=== PATIENT | female | born 1950 | race Caucasian/White ===

== ENCOUNTER 2018-04-27 19:21 | Inpatient (IN) | payer MEDICARE, MEDICAID ==
[2018-04-27 20:10] VITALS: BMI 49.9
[2018-04-27] MEDS ORDERED: Dextrose 50% Abboject 50 ML SYRINGE IVP PRN (20:12)
[2018-04-27] MEDS ORDERED: Dextrose 5% in Water 1,000 ML IV PRN ×2 (20:12→21:17)
[2018-04-27] MEDS ORDERED: Dextrose 50% Abboject 50 ML SYRINGE SLOW IVP PRN (21:17)
[2018-04-27] MEDS ORDERED: Acetaminophen 325 MG TAB PO PRN (22:02)
[2018-04-28] MEDS ORDERED: ACETAMINOPHEN 1300 MG PO SCH (01:00)
[2018-04-28 05:22] LABS: #Basophils 0.1 thou/uL (0.0-0.2); #Eosinphils 0.1 thou/uL (0.0-0.7); #Lymphocytes 2.1 thou/uL (1.20-3.40); #Monocytes 0.9 thou/uL (0.11-0.59); #Neutrophils 5.3 thou/uL (1.40-6.50); %Basophils 0.7 % (0.0-1.0); %Eosinophils 1.3 % (0.0-10.0); %Lymphocytes 25.2 % (21.0-51.0); %Monocytes 10.5 % (0.0-10.0); %Neutrophils 62.3 % (42.0-75.0); Hemoglobin 9.3 g/dL (12.0-16.0); Mean Corpuscular HGB CONC 31.8 g/dL (32.0-36.0); Mean Corpuscular Hemoglobin 28.2 pg (27.0-31.0); Mean Corpuscular Volume 88.6 fL (78.0-98.0); Mean Platelet Volume 6.2 fL (7.4-10.4); Platelet Count 271 thou/uL (130-400); RBC Distribution Width 13.8 % (11.5-14.5); Red Blood Cell (RBC) Count 3.28 mill/uL (4.20-5.40); White Blood Cell (WBC) Count 8.5 thou/uL (4.8-10.8)
[2018-04-28 05:33] LABS: ALT (SGPT) 31 U/L (8-55); AST (SGOT) 27 U/L (5-34); Alkaline Phosphatase 96 U/L (40-150); Anion Gap 10 mmol/L (10-20); BUN (Urea Nitrogen) 12 mg/dL (9.8-20.1); Calc. Creatinine Clearance 132 mL/min (70-130); Calcium 9.2 mg/dL (7.8-10.44); Carbon Dioxide 31 mmol/L (23-31); Chloride 100 mmol/L (98-107); Estimated GFR-MDRD 71; Globulin 2.8 g/dL (2.4-3.5); Glucose 158 mg/dL (80-115); Potassium 4.4 mmol/L (3.5-5.1); Protein, Total 5.8 g/dL (6.0-8.3); Sodium 137 mmol/L (136-145)
[2018-04-28] MEDS: DULoxetine 30 MG CAP PO SCH ×2 (08:34→20:29)
[2018-04-28] MEDS: Nebivolol HCl 10 MG TAB PO SCH (08:36)
[2018-04-28] MEDS: Polyethylene Glycol 3350 17 GM Packet PO SCH (08:37)
[2018-04-28] MEDS: Pregabalin 75 MG CAP PO SCH ×2 (08:37→20:28)
[2018-04-28] MEDS: Triamterene/Hydrochlorothiazide TAB PO SCH (08:39)
[2018-04-28] MEDS ORDERED: Lantus 1000 UNITS/10 ML VIAL SC SCH ×2 (09:00)
[2018-04-28] MEDS: Insulin Regular 300 UNITS/3 ML VIAL SC PRN ×2 (11:35→17:07)
[2018-04-28] MEDS: HYDROcodone/Acetaminophen 10/325 mg Tablet PO PRN (15:58)
[2018-04-28] MEDS: Montelukast Sodium 10 mg Tablet PO SCH (20:29)
[2018-04-28] MEDS: Oxybutynin 5 MG TAB PO SCH (20:29)
[2018-04-28] MEDS: Lantus 1000 UNITS/10 ML VIAL SC SCH (20:30)
[2018-04-28] MEDS: Famotidine 20 MG TAB PO SCH (20:30)
[2018-04-28] MEDS ORDERED: Insulin Glargine 16 UNITS in Pre-Filled Syringe 1 EACH SC SCH (21:00)
[2018-04-28] MEDS ORDERED: Non-Formulary Item 1 EACH (Ranitidine Hcl [Ranitidine Hcl] 150 MG) PO SCH (21:00)
--- NOTE | 2018-04-29 01:38 | HP ---
HISTORY OF PRESENT ILLNESS: Patient is a very pleasant 68-year-old white female with a history of poorly-controlled insulin-dependant diabetes mellitus, morbid obesity, recurrent osteoarthritis of the right knee, hypertension, and asthma, who has undergone multiple arthroscopy of the right knee and finally she has undergone a total knee replacement on April [address] Gopal Whyte. She initially was on high doses of insulin long and short-acting at home with a hemoglobin A1c of 7.1. She admitted to being noncompliant to her diet at home, but in the hospital did not eat well and became hypoglycemic and therefore was taken off all of her routine insulin and started on a sliding scale. However, she now is eating better, has been started back on her routine medicines increasing doses, although she states that she was on 66 units of Lantus in the morning as well as NovoLog 30 units and then 30 units with every meal. At present, she is on 33 units of Lantus in the morning and 16 units at night. She is eating well. No nausea or vomiting. PAST MEDICAL HISTORY: Remarkable as mentioned above for: 1. Asthma with occasional use of Pulmicort. No recent flare, being treated with DuoNeb while in the hospital postop. 2. History of a distant GI bleed, controlled with Pepcid. 3. History of hyperkalemia in the past and acute kidney injury, resolved and off antiinflammatories and diuretics. ALLERGIES: SHE HAS HISTORY OF ALLERGIES TO SULFA, IVP DYE, AND BETA BLOCKERS. SOCIAL HISTORY: She is a nonsmoker, nondrinker. FAMILY MEDICAL HISTORY: Noncontributory. REVIEW OF SYSTEMS: HEENT: She denies any headaches, dizziness, change in vision or hearing, hoarseness, or dysphagia. PULMONARY: She denies cough, sputum production, pneumonia, asthma, or tuberculosis. CARDIOVASCULAR: Denies chest pain, orthopnea, paroxysmal nocturnal dyspnea, or edema. GASTROINTESTINAL: Denies nausea, vomiting, diarrhea, constipation, or abdominal pain. GENITOURINARY: Denies dysuria, hematuria, or nocturia. MUSCULOSKELETAL: Has pain in the right knee, otherwise normal. NEUROLOGIC: Denies localized numbness or weakness in arms or extremities. PHYSICAL EXAMINATION: GENERAL: The patient is a morbidly obese, middle-aged white female, in no acute distress. Oriented x3 and cooperative. VITAL SIGNS: Showed her to have blood pressure 114/56, temperature is 98, pulse 65, respirations 18, and O2 sats 96% on room air. HEENT: Pupils are equal, round, and reactive to light and accommodation. Sclerae anicteric. Conjunctivae pale. Oral mucous membranes well hydrated. NECK: Supple. There are no nodes or masses. JVP is not elevated. LUNGS: Clear. CARDIAC EXAMINATION: Regular rhythm. No gallops or murmurs. ABDOMEN: Soft and nontender with no masses or organomegaly. SKIN/EXTREMITIES: Show healing anterior right knee incision with diffuse ecchymoses around the knee, but no significant erythema. There is 1+ edema. Minimal tenderness on the lower leg. NEUROLOGIC: Cranial nerves 2 through 12 intact. Deep tendon reflex 2+ and equal. Absent Babinski. LABORATORY: Laboratories previous hospital showed her to have hemoglobin A1c of 7.5. Hemoglobin 9.9. Creatinine of 1.0. ASSESSMENT: 1. Resolving right total knee. No evidence of infection. 2. Poorly-controlled diabetes secondary to noncompliance, being titrated slowly with sliding scale and reinstitution of her home medications. 3. Acute kidney injury, resolved. 4. , appeared to be stabilized. 5. History of asthma with no evidence of bronchospasm. 6. History of upper gastrointestinal bleed many years ago with no recurrence. PLAN: 1. Continue PT/OT. 2. Review labs therapy notes. 3. Continue sliding scale and restart Lantus at 30 units in the morning and 60 units at night. 4. Continue pain relief. 5. Continue stress ulcer and DVT prophylaxis. Job ID: [id number]
[2018-04-29] MEDS: HYDROcodone/Acetaminophen 10/325 mg Tablet PO PRN ×3 (05:28→19:40)
[2018-04-29] MEDS: Insulin Regular 300 UNITS/3 ML VIAL SC PRN ×4 (05:29→21:34)
[2018-04-29] MEDS: Lantus 1000 UNITS/10 ML VIAL SC SCH ×2 (08:50→21:31)
[2018-04-29] MEDS: DULoxetine 30 MG CAP PO SCH ×2 (08:51→21:31)
[2018-04-29] MEDS: Polyethylene Glycol 3350 17 GM Packet PO SCH (08:51)
[2018-04-29] MEDS: Pregabalin 75 MG CAP PO SCH ×2 (08:52→21:33)
[2018-04-29] MEDS: Nebivolol HCl 10 MG TAB PO SCH (08:52)
[2018-04-29] MEDS: Triamterene/Hydrochlorothiazide TAB PO SCH (08:54)
[2018-04-29] MEDS: Famotidine 20 MG TAB PO SCH (21:31)
[2018-04-29] MEDS: Montelukast Sodium 10 mg Tablet PO SCH (21:32)
[2018-04-29] MEDS: Oxybutynin 5 MG TAB PO SCH (21:32)
[2018-04-30] MEDS: Insulin Regular 300 UNITS/3 ML VIAL SC PRN ×4 (05:31→20:27)
[2018-04-30] MEDS: HYDROcodone/Acetaminophen 10/325 mg Tablet PO PRN ×2 (09:27→20:26)
[2018-04-30] MEDS: DULoxetine 30 MG CAP PO SCH ×2 (09:30→20:24)
[2018-04-30] MEDS: Nebivolol HCl 10 MG TAB PO SCH (09:31)
[2018-04-30] MEDS: Lantus 1000 UNITS/10 ML VIAL SC SCH ×2 (09:32→20:24)
[2018-04-30] MEDS: Polyethylene Glycol 3350 17 GM Packet PO SCH (09:33)
[2018-04-30] MEDS: Pregabalin 75 MG CAP PO SCH ×2 (09:33→20:25)
[2018-04-30] MEDS: Triamterene/Hydrochlorothiazide TAB PO SCH (09:35)
[2018-04-30] MEDS ORDERED: Polyethylene Glycol 3350 17 GM Packet PO SCH (17:30)
--- NOTE | 2018-04-30 17:30 | PRG ---
DATE OF SERVICE: 04/28/2018 SUBJECTIVE: The patient feels well, cooperating with therapy. No complaints. Tolerating gradual increase in her insulin. Having tolerable pain in her right knee status post right total knee replacement. OBJECTIVE: Shows, VITAL SIGNS: Temperature 97.1, pulse 75, respirations 18, O2 saturation is 94% on room air, blood pressure 137/62. EXTREMITIES: Right knee incision shows diffuse ecchymoses, but no erythema. Trace edema. Minimal tenderness. NEUROLOGIC: Intact. LUNGS: Clear. CARDIAC: Regular rhythm. LABORATORY DATA: Accu-Cheks ranged . Sodium is 137, potassium 4.4, chloride 100, bicarb 31, BUN 12, creatinine 0.8, glucose 158, calcium 9.2, protein 5.0, albumin 3.0. White count 8500, hematocrit 29, hemoglobin 9. ASSESSMENT: 1. Resolving right total knee. No evidence of infection. 2. Poorly-controlled diabetes, slowly improving. 3. Acute kidney injury, resolved. 4. History of asthma. No recurrence. PLAN: 1. Continue Lantus doses of 32 units 16 units at night. 2. Monitor Accu-Cheks, slowly titrate. 3. Continue pain relief. 4. Continue PT/OT. 5. Continue to monitor vital signs and control if needed. 6. Continue stress ulcer and DVT prophylaxis. Job ID: [id number]
--- NOTE | 2018-04-30 17:34 | PRG ---
DATE OF SERVICE: 04/29/2018 SUBJECTIVE: The patient feels well, cooperating with therapy with no complaints, decreasing pain, increasing strength. OBJECTIVE: VITAL SIGNS: Show temperature 98, pulse 79, respirations 20, O2 sats 94% on room air, and blood pressure 130/60. LUNGS: Clear. CARDIAC: Showed regular rhythm. ABDOMEN: Soft and nontender. EXTREMITIES: Right knee shows minimal erythema and swelling and tenderness. LABORATORY DATA: Accu-Cheks still ranging above 200. We will consider changing insulin tomorrow. Stressed compliance diet with the patient. ASSESSMENT: 1. Uncontrolled diabetes. We will continue to titrate insulin. 2. Stable right total knee, improving daily and cooperating with therapy. 3. Asthma, well controlled with no evidence for recurrence. 4. History of distant gastrointestinal bleed. PLAN: 1. Continue PT and OT. 2. Continue stress ulcer and DVT prophylaxis. 3. Continue to titrate insulin. Job ID: [id number]
--- NOTE | 2018-04-30 17:57 | PRG ---
DATE OF SERVICE: 04/30/2018 SUBJECTIVE: The patient feels well. Only complains of constipation with no bowel movement in 10 days. She is refusing magnesium citrate and is requesting MiraLAX and Gatorade. She is eating well, however, and is having increasing Accu-Cheks. OBJECTIVE: VITAL SIGNS: Blood pressure is 168/68, temperature is 96, pulse 71, respirations are 18, O2 saturations 96% on room air. Accu-Cheks ranged from 174 to 334. LUNGS: Clear. CARDIAC: Examination showed regular rhythm. ABDOMEN: Soft and nontender. EXTREMITIES: Right knee appears to be healing well with diffuse ecchymoses, but no erythema. ASSESSMENT: 1. Healing right total knee. 2. Poorly-controlled diabetes. 3. New onset of constipation. 4. Morbid obesity. 5. Asthma. PLAN: 1. MiraLAX ounces of Gatorade, patient requests. 2. Increase Lantus to 40 units in the morning, continue night and continue Accu-Cheks to monitor and titrate and control. 3. Continue PT/OT. 4. Continue pain relief. 5. Continue stress ulcer and DVT prophylaxis. Job ID: [id number]
[2018-04-30] MEDS: Famotidine 20 MG TAB PO SCH (20:24)
[2018-04-30] MEDS: Oxybutynin 5 MG TAB PO SCH (20:25)
[2018-04-30] MEDS: Montelukast Sodium 10 mg Tablet PO SCH (20:25)
[2018-05-01] MEDS: HYDROcodone/Acetaminophen 10/325 mg Tablet PO PRN ×2 (04:31→11:03)
[2018-05-01] MEDS: Insulin Regular 300 UNITS/3 ML VIAL SC PRN ×4 (05:37→21:06)
[2018-05-01] MEDS: Pregabalin 75 MG CAP PO SCH ×2 (09:45→21:10)
[2018-05-01] MEDS: Nebivolol HCl 10 MG TAB PO SCH (09:47)
[2018-05-01] MEDS: DULoxetine 30 MG CAP PO SCH ×2 (09:49→21:11)
[2018-05-01] MEDS: Lantus 1000 UNITS/10 ML VIAL SC SCH ×2 (09:50→21:07)
[2018-05-01] MEDS: Triamterene/Hydrochlorothiazide TAB PO SCH (09:51)
[2018-05-01] MEDS: HYDROcodone/Acetaminophen 5/325 mg Tablet PO PRN (18:12)
[2018-05-01] MEDS: Famotidine 20 MG TAB PO SCH (21:11)
[2018-05-01] MEDS: Oxybutynin 5 MG TAB PO SCH (21:11)
[2018-05-01] MEDS: Montelukast Sodium 10 mg Tablet PO SCH (21:12)
[2018-05-02] MEDS: HYDROcodone/Acetaminophen 5/325 mg Tablet PO PRN ×2 (02:08→09:03)
[2018-05-02] MEDS: Insulin Regular 300 UNITS/3 ML VIAL SC PRN ×2 (05:25→11:50)
[2018-05-02] MEDS: DULoxetine 30 MG CAP PO SCH ×2 (08:58→20:53)
[2018-05-02] MEDS: Lantus 1000 UNITS/10 ML VIAL SC SCH ×2 (08:59→21:02)
[2018-05-02] MEDS: Nebivolol HCl 10 MG TAB PO SCH (09:00)
[2018-05-02] MEDS: Pregabalin 75 MG CAP PO SCH ×2 (09:00→20:55)
[2018-05-02] MEDS: Triamterene/Hydrochlorothiazide TAB PO SCH (09:02)
[2018-05-02] MEDS ORDERED: TRULICITY PATIENT'S HOME MEDICATION SC SCH (16:00)
[2018-05-02] MEDS: Famotidine 20 MG TAB PO SCH (20:54)
[2018-05-02] MEDS: Oxybutynin 5 MG TAB PO SCH (20:54)
[2018-05-02] MEDS: Montelukast Sodium 10 mg Tablet PO SCH (20:54)
[2018-05-02] MEDS: Nystatin 500,000 UNITS/5 ML UDCUP SSW SCH (21:39)
[2018-05-03] MEDS: HYDROcodone/Acetaminophen 5/325 mg Tablet PO PRN ×3 (05:27→20:23)
[2018-05-03 05:29] LABS: #Basophils 0.1 thou/uL (0.0-0.2); #Eosinphils 0.1 thou/uL (0.0-0.7); #Lymphocytes 4.9 thou/uL (1.20-3.40); #Monocytes 1.5 thou/uL (0.11-0.59); #Neutrophils 11.2 thou/uL (1.40-6.50); %Basophils 0.6 % (0.0-1.0); %Eosinophils 0.7 % (0.0-10.0); %Lymphocytes 27.4 % (21.0-51.0); %Monocytes 8.1 % (0.0-10.0); %Neutrophils 63.2 % (42.0-75.0); Hemoglobin 11.6 g/dL (12.0-16.0); Mean Corpuscular HGB CONC 32.1 g/dL (32.0-36.0); Mean Corpuscular Hemoglobin 28.7 pg (27.0-31.0); Mean Corpuscular Volume 89.4 fL (78.0-98.0); Mean Platelet Volume 6.5 fL (7.4-10.4); Platelet Count 591 thou/uL (130-400); RBC Distribution Width 14.1 % (11.5-14.5); Red Blood Cell (RBC) Count 4.03 mill/uL (4.20-5.40); White Blood Cell (WBC) Count 17.8 thou/uL (4.8-10.8)
[2018-05-03 05:46] LABS: Anion Gap 17 mmol/L (10-20); BUN (Urea Nitrogen) 15 mg/dL (9.8-20.1); Calc. Creatinine Clearance 97 mL/min (70-130); Calcium 10.7 mg/dL (7.8-10.44); Carbon Dioxide 28 mmol/L (23-31); Chloride 94 mmol/L (98-107); Estimated GFR-MDRD 50; Glucose 188 mg/dL (80-115); Potassium 4.6 mmol/L (3.5-5.1); Sodium 134 mmol/L (136-145)
[2018-05-03] MEDS ORDERED: Nystatin 500,000 UNITS/5 ML UDCUP ONE ×2 (09:47→14:23)
[2018-05-03] MEDS: DULoxetine 30 MG CAP PO SCH ×2 (09:50→20:22)
[2018-05-03] MEDS: Nebivolol HCl 10 MG TAB PO SCH (09:52)
[2018-05-03] MEDS: Pregabalin 75 MG CAP PO SCH ×2 (09:52→20:20)
[2018-05-03] MEDS: Nystatin 500,000 UNITS/5 ML UDCUP SSW SCH ×2 (09:52→14:33)
[2018-05-03] MEDS: Triamterene/Hydrochlorothiazide TAB PO SCH (09:54)
[2018-05-03] MEDS: Lantus 1000 UNITS/10 ML VIAL SC SCH ×2 (09:55→20:19)
--- NOTE | 2018-05-03 10:11 | RAD ---
PORTABLE CHEST: Date: 05/03/18 PROVIDED CLINICAL HISTORY: Leukocytosis. FINDINGS: Evaluation is limited by patient body habitus. Cardiac silhouette appears enlarged, which may be at least partially on the basis of portable techniq ue. There is no focal consolidation, pleural fluid, or pneumothorax apparent. IMPRESSION: No evidence for an acute cardiopulmonary process. POS: H
[2018-05-03] MEDS: Insulin Regular 300 UNITS/3 ML VIAL SC PRN ×2 (12:20→17:18)
--- NOTE | 2018-05-03 12:56 | PRG ---
DATE OF SERVICE: 05/01/2018 SUBJECTIVE: The patient feels bloated, still has not had a good bowel movement, but will finish through rest of her MiraLAX tonight and having persistent pain in her knee and is concerned about this and possible infection. OBJECTIVE: EXTREMITIES: Right knee shows ecchymoses, but no erythema or warmth. VITAL SIGNS: Show temperature 98.6, blood pressure 152/70, pulse 70, respirations 16, O2 saturations 93% on room air. ASSESSMENT: 1. Severe pain, right knee. No evidence of infection. 2. Constipation, in the process of taking MiraLAX prep. 3. Type 2 diabetes with inadequate control. Accu-Chek running above 300. PLAN: 1. Continue MiraLAX and Gatorade. 2. Continue hydrocodone for pain. 3. Titrate Lantus even more. 4. Repeat labs in several days. Job ID: [id number]
[2018-05-03] MEDS: Fluconazole 100 MG TAB PO SCH (17:15)
[2018-05-03 20:20] LABS: Bilirubin Negative (Negative); Blood, Urine Trace (Negative); Glucose, Urine (Dipstick) Negative (Negative); Leukocyte Large (Negative); Nitrite Positive (Negative); Protein, Urine (Dipstick) Negative (Neg-Trace); Specific Gravity, Urine 1.015 (1.005-1.030)
[2018-05-03] MEDS: Montelukast Sodium 10 mg Tablet PO SCH (20:22)
[2018-05-03] MEDS: Famotidine 20 MG TAB PO SCH (20:22)
[2018-05-03] MEDS: Oxybutynin 5 MG TAB PO SCH (20:22)
[2018-05-03 20:26] LABS: Clarity Hazy (Clear)
[2018-05-03 20:28] LABS: RBC/HPF 0-3 HPF (0-3); Squamous Epithelial 0-3 HPF (0-3)
[2018-05-03 20:29] LABS: Bacteria/HPF 4+ HPF (None Seen)
[2018-05-04] MEDS: Insulin Regular 300 UNITS/3 ML VIAL SC PRN ×4 (05:47→20:43)
[2018-05-04] MEDS ORDERED: cefTRIAXone Sodium 2 MG in Syringe 0 ML IVPB SCH (06:00)
--- NOTE | 2018-05-04 06:56 | PRG ---
DATE OF SERVICE: 05/02/2018 SUBJECTIVE: The patient feels well except for sores in her mouth, has had a large bowel movement, and is having mainly complained of sore tongue and also persistent pain in her right knee. OBJECTIVE: HEENT: Tongue shows beefy-red tongue with some mild exudate on tongue. EXTREMITIES: Right knee shows ecchymoses, but with no erythema or warmth. LUNGS: Clear. CARDIAC: Regular rhythm. ABDOMEN: Soft and nontender. VITAL SIGNS: Temperature is 96.5, pulse 64, respirations 20, O2 sats 97% on room air, and blood pressure is 149/56. ASSESSMENT: 1. Persistent pain in the right knee, ecchymoses, no evidence of erythema. We will obtain labs, CBC, basic metabolic profile in the a.m. 2. New onset of red-beefy tongue, most likely due to nystatin oral swish and swallow unavailable, so we will start on Diflucan. 3. Constipation, resolved. PLAN: 1. Diflucan 150 mg daily for 3 days. 2. CBC, basic metabolic profile in the a.m. 3. Continue pain medications as ordered. 4. Continue PT/OT. Job ID: [id number]
[2018-05-04] MEDS ORDERED: cefTRIAXone\\ROCEPHIN 2 GM in Sodium Chloride 0.9% 100 ML IVPB SCH (07:00)
--- NOTE | 2018-05-04 07:03 | PRG ---
DATE OF SERVICE: 05/03/2018 SUBJECTIVE: The patient is a 68-year-old white female, status post right total knee, who is having persistent pain in her knee, having some sore lesions in her mouth. Her mouth appears to be somewhat less tender. She is denying any cough, shortness of breath, dysuria, or abdominal pain. OBJECTIVE: VITAL SIGNS: Temperature 96.8, pulse 70, respirations 18, O2 sats 97% on room air, and blood pressure 148/65. ABDOMEN: Soft and nontender. EXTREMITIES: Right knee still shows no erythema or warmth, but is tender with ecchymoses. LABORATORY DATA: Laboratory, however, shows her to have a white count of 17,800, hematocrit 36, and hemoglobin 11.6. Accu-Cheks are from 168 to 247. Sodium is 134, potassium 4.6, chloride 94, bicarb 28, BUN 15, and creatinine 1.08. Urinalysis did show greater than 50 white cells, large leukocytes. Chest x-ray showed no infiltrates. ASSESSMENT: 1. Leukocytosis, new onset of urinary tract infection. We will do urine culture, start on treatment with Rocephin, but we will also treat for possible right leg infection with vancomycin until blood and urine cultures return. The patient is to follow up with orthopedic surgeon soon, and we will continue on antibiotics until seen by him. 2. Oral monilial stomatitis, appears to be improving with Diflucan, we will continue. Job ID: [id number]
--- NOTE | 2018-05-04 07:46 | PRG ---
DATE OF SERVICE: 05/04/2018 SUBJECTIVE: The patient feels well, lying in bed, still complaining of sore mouth, however, and pain in the right knee. She has taken Diflucan for her mouth. OBJECTIVE: EXTREMITIES: Show right knee has some warmth and diffuse ecchymoses, but no real drainage or erythema. Culture of the knee incision is showing no white cells, no organisms, and no growth. ABDOMEN: Soft and nontender. LUNGS: Clear. VITAL SIGNS: Show blood pressure 151/73, temperature 97.8, pulse 73, respirations 19, O2 sats 96% on room air. ASSESSMENT: 1. Status post right total knee with persistent severe pain and now some mild warmth and new finding of leukocytosis, but with negative skin culture and new finding of pyuria or bacteriuria, but with no symptoms of dysuria, hematuria. 2. Monilial stomatitis, minimal improvement with one dose of Diflucan. PLAN: Blood and urine culture today, and start on vancomycin, Rocephin. Follow with Dr. Whyte for a repeat examination. Continue PT, OT. Job ID: [id number]
[2018-05-04 08:34] LABS: #Basophils 0.1 thou/uL (0.0-0.2); #Eosinphils 0.1 thou/uL (0.0-0.7); #Lymphocytes 2.1 thou/uL (1.20-3.40); #Monocytes 0.8 thou/uL (0.11-0.59); #Neutrophils 8.3 thou/uL (1.40-6.50); %Basophils 0.7 % (0.0-1.0); %Eosinophils 0.7 % (0.0-10.0); %Lymphocytes 18.8 % (21.0-51.0); %Monocytes 6.7 % (0.0-10.0); %Neutrophils 73.1 % (42.0-75.0); Hemoglobin 11.5 g/dL (12.0-16.0); Mean Corpuscular HGB CONC 30.7 g/dL (32.0-36.0); Mean Corpuscular Hemoglobin 27.6 pg (27.0-31.0); Mean Corpuscular Volume 89.9 fL (78.0-98.0); Mean Platelet Volume 6.4 fL (7.4-10.4); Platelet Count 448 thou/uL (130-400); RBC Distribution Width 14.4 % (11.5-14.5); Red Blood Cell (RBC) Count 4.18 mill/uL (4.20-5.40); White Blood Cell (WBC) Count 11.3 thou/uL (4.8-10.8)
[2018-05-04] MEDS: Lantus 1000 UNITS/10 ML VIAL SC SCH ×2 (08:37→20:39)
[2018-05-04] MEDS: DULoxetine 30 MG CAP PO SCH ×2 (08:38→20:38)
[2018-05-04] MEDS: Nebivolol HCl 10 MG TAB PO SCH (08:38)
[2018-05-04] MEDS: Pregabalin 75 MG CAP PO SCH ×2 (08:40→20:36)
[2018-05-04] MEDS: Vancomycin HCl 1 GM in Sodium Chloride 0.9% 250 ML 250 ML IVPB SCH ×2 (08:43→20:28)
[2018-05-04] MEDS: Triamterene/Hydrochlorothiazide TAB PO SCH (08:43)
[2018-05-04] MEDS: HYDROcodone/Acetaminophen 5/325 mg Tablet PO PRN ×2 (08:46→12:29)
[2018-05-04 08:51] LABS: Anion Gap 16 mmol/L (10-20); BUN (Urea Nitrogen) 16 mg/dL (9.8-20.1); Calc. Creatinine Clearance 110 mL/min (70-130); Calcium 10.3 mg/dL (7.8-10.44); Carbon Dioxide 25 mmol/L (23-31); Chloride 96 mmol/L (98-107); Estimated GFR-MDRD 58; Glucose 183 mg/dL (80-115); Potassium 4.2 mmol/L (3.5-5.1); Sodium 133 mmol/L (136-145)
[2018-05-04] MEDS: cefTRIAXone\\ROCEPHIN 2 GM in Sodium Chloride 0.9% 100 ML IVPB SCH (12:30)
[2018-05-04] MEDS ORDERED: Sodium Chloride 0.9% 10 ML ONE (13:32)
[2018-05-04] MEDS: Fluconazole 100 MG TAB PO SCH (16:20)
[2018-05-04] MEDS: Famotidine 20 MG TAB PO SCH (20:38)
[2018-05-04] MEDS: Oxybutynin 5 MG TAB PO SCH (20:38)
[2018-05-04] MEDS: Montelukast Sodium 10 mg Tablet PO SCH (20:38)
[2018-05-05] MEDS: Insulin Regular 300 UNITS/3 ML VIAL SC PRN ×4 (06:09→21:17)
[2018-05-05] MEDS: HYDROcodone/Acetaminophen 5/325 mg Tablet PO PRN ×4 (08:24→21:00)
[2018-05-05] MEDS: Lantus 1000 UNITS/10 ML VIAL SC SCH ×2 (09:22→21:01)
[2018-05-05] MEDS: Nebivolol HCl 10 MG TAB PO SCH (09:23)
[2018-05-05] MEDS: DULoxetine 30 MG CAP PO SCH ×2 (09:28→21:13)
[2018-05-05] MEDS: Pregabalin 75 MG CAP PO SCH ×2 (09:29→21:14)
[2018-05-05] MEDS: Vancomycin HCl 1 GM in Sodium Chloride 0.9% 250 ML 250 ML IVPB SCH ×2 (09:30→20:59)
[2018-05-05] MEDS: Triamterene/Hydrochlorothiazide TAB PO SCH (09:30)
[2018-05-05] MEDS: cefTRIAXone\\ROCEPHIN 2 GM in Sodium Chloride 0.9% 100 ML IVPB SCH (09:31)
[2018-05-05] MEDS: Fluconazole 100 MG TAB PO SCH (16:28)
--- NOTE | 2018-05-05 18:51 | PRG ---
DATE OF SERVICE: 05/05/2018 SUBJECTIVE: The patient complaining of persistent right hip and thigh pain and knee pain and states that she needs a heating pad. It appears to be spasms. She has had no fever and chills. She has had her Trulicity given to her, but is still having uncontrolled sugar, diabetes. She also is complaining of persistent pain. OBJECTIVE: VITAL SIGNS: Have been fairly stable tonight, blood pressure 178/77, temperature 97, pulse 96, respirations 20, O2 sats 90% on room air. LUNGS: Clear. CARDIAC: Regular rhythm. No gallops or murmurs. ABDOMEN: Soft and nontender. EXTREMITIES: Right knee/leg shows diffuse ecchymoses, but with no erythema or warmth. LABORATORY DATA: White count improved to 11,300 yesterday. Accu-Chek still elevated today at 236, down to 183. Sodium is 133 yesterday, potassium 4.2, chloride 96, bicarb 25, BUN 16, creatinine 0.96, glucose 183. Microbiology shows urine culture positive for E coli. ASSESSMENT: 1. Probable Escherichia coli urinary tract infection causing leukocytosis and we will change to oral antibiotic tomorrow if orthopedic surgeon agrees and knee does not appear to be infected. 2. Persistent knee and hip pain, most likely due to subcutaneous hematoma and ecchymoses and spasms. We will start on heating pad per request. 3. Uncontrolled diabetes despite being started back on her Trulicity 0.75 this weekend and continued on moderate sliding scale and Lantus 44 units at night. The patient is also requesting Mobic (meloxicam) for her recurrent arthritic pain as her arthritis and diffuse fibromyalgia persisted. PLAN: 1. Mobic 15 mg daily. 2. Continue Trulicity and increase Lantus to 46 units daily. 3. Discussed with orthopedic surgeon about need for IV antibiotics for knee if necessary. 4. Change to oral antibiotics for E coli urinary tract infections tomorrow when sensitivities return. Job ID: [id number]
[2018-05-05] MEDS: Montelukast Sodium 10 mg Tablet PO SCH (21:12)
[2018-05-05] MEDS: Oxybutynin 5 MG TAB PO SCH (21:13)
[2018-05-05] MEDS: Famotidine 20 MG TAB PO SCH (21:13)
[2018-05-06] MEDS: Lantus 1000 UNITS/10 ML VIAL SC SCH ×2 (07:59→19:46)
[2018-05-06] MEDS: DULoxetine 30 MG CAP PO SCH ×2 (07:59→19:45)
[2018-05-06] MEDS: Meloxicam 7.5 MG TAB PO SCH (07:59)
[2018-05-06] MEDS: Nebivolol HCl 10 MG TAB PO SCH (08:00)
[2018-05-06] MEDS: Pregabalin 75 MG CAP PO SCH ×2 (08:00→19:46)
[2018-05-06] MEDS: Triamterene/Hydrochlorothiazide TAB PO SCH (08:01)
[2018-05-06] MEDS: Vancomycin HCl 1 GM in Sodium Chloride 0.9% 250 ML 250 ML IVPB SCH ×3 (08:02→19:48)
[2018-05-06] MEDS: HYDROcodone/Acetaminophen 5/325 mg Tablet PO PRN (08:02)
[2018-05-06] MEDS: cefTRIAXone\\ROCEPHIN 2 GM in Sodium Chloride 0.9% 100 ML IVPB SCH (11:11)
[2018-05-06] MEDS: Insulin Regular 300 UNITS/3 ML VIAL SC PRN (11:28)
--- NOTE | 2018-05-06 18:28 | PRG ---
DATE OF SERVICE: 05/06/2018 SUBJECTIVE: The patient feels well with decreasing, but persistent pain in the right knee. Has seen her surgeon today, who states that she needs to tolerate this as her leg is healing, but will need to continue on therapy and the above-mentioned pain medications as previously prescribed. Does not think she has any infection in her leg. OBJECTIVE: VITAL SIGNS: Show temperature 96, pulse 65, respirations 18, O2 saturation is 97% on room air, and blood pressure 129/62. LABORATORY DATA: Urine cultures growing Escherichia coli and Proteus mirabilis. Sensitivities pending. Right knee shows persistent ecchymoses with decreasing edema. ASSESSMENT: 1. Resolving right total knee with no evidence of infection. 2. Urinary tract infection, secondary to Escherichia coli and Proteus. Awaiting sensitivities. We will start on Keflex orally. Continue IV Rocephin until sensitivities returned. 3. Diabetes with adequate control, and we will increase medications to glargine Lantus 50 units in the morning and continue 23 units at night and monitor. Job ID: [id number]
[2018-05-06] MEDS: Famotidine 20 MG TAB PO SCH (19:45)
[2018-05-06] MEDS: Oxybutynin 5 MG TAB PO SCH (19:46)
[2018-05-06] MEDS: Montelukast Sodium 10 mg Tablet PO SCH (19:46)
[2018-05-07] MEDS: Insulin Regular 300 UNITS/3 ML VIAL SC PRN ×3 (06:19→21:16)
[2018-05-07] MEDS: Meloxicam 7.5 MG TAB PO SCH (08:40)
[2018-05-07] MEDS: DULoxetine 30 MG CAP PO SCH ×2 (08:40→21:07)
[2018-05-07] MEDS: Lantus 1000 UNITS/10 ML VIAL SC SCH ×2 (08:41→21:15)
[2018-05-07] MEDS: Nebivolol HCl 10 MG TAB PO SCH (08:43)
[2018-05-07] MEDS: Pregabalin 75 MG CAP PO SCH ×2 (08:43→21:07)
[2018-05-07] MEDS: Triamterene/Hydrochlorothiazide TAB PO SCH (08:44)
[2018-05-07] MEDS: Vancomycin HCl 1 GM in Sodium Chloride 0.9% 250 ML 250 ML IVPB SCH (08:44)
[2018-05-07] MEDS: HYDROcodone/Acetaminophen 5/325 mg Tablet PO PRN ×3 (08:45→21:09)
[2018-05-07] MEDS: cefTRIAXone\\ROCEPHIN 2 GM in Sodium Chloride 0.9% 100 ML IVPB SCH (10:28)
[2018-05-07] MEDS ORDERED: AMOXicillin 250 MG CAP ONE (20:59)
[2018-05-07] MEDS: Famotidine 20 MG TAB PO SCH (21:06)
[2018-05-07] MEDS: Montelukast Sodium 10 mg Tablet PO SCH (21:06)
[2018-05-07] MEDS: Oxybutynin 5 MG TAB PO SCH (21:07)
[2018-05-07] MEDS: Nitrofurantoin Macrocrystal 50 MG CAP PO SCH (21:08)
[2018-05-07] MEDS: AMOXicillin 250 MG CAP PO SCH (21:26)
[2018-05-08] MEDS: AMOXicillin 250 MG CAP PO SCH ×3 (05:28→21:07)
[2018-05-08] MEDS: HYDROcodone/Acetaminophen 5/325 mg Tablet PO PRN ×3 (05:29→21:08)
[2018-05-08] MEDS: Pregabalin 75 MG CAP PO SCH ×2 (08:40→21:07)
[2018-05-08] MEDS: DULoxetine 30 MG CAP PO SCH ×2 (08:42→21:07)
[2018-05-08] MEDS: Meloxicam 7.5 MG TAB PO SCH (08:42)
[2018-05-08] MEDS: Nitrofurantoin Macrocrystal 50 MG CAP PO SCH ×4 (08:42→21:07)
[2018-05-08] MEDS: Nebivolol HCl 10 MG TAB PO SCH (08:43)
[2018-05-08] MEDS: Lantus 1000 UNITS/10 ML VIAL SC SCH ×2 (08:44→21:13)
[2018-05-08] MEDS: Triamterene/Hydrochlorothiazide TAB PO SCH (08:46)
[2018-05-08] MEDS: NEXIUM 40 MG PO SCH (08:47)
[2018-05-08] MEDS: Insulin Regular 300 UNITS/3 ML VIAL SC PRN ×2 (11:33→21:14)
[2018-05-08] MEDS: Famotidine 20 MG TAB PO SCH (21:07)
[2018-05-08] MEDS: Oxybutynin 5 MG TAB PO SCH (21:07)
[2018-05-08] MEDS: Montelukast Sodium 10 mg Tablet PO SCH (21:07)
[2018-05-09] MEDS: AMOXicillin 250 MG CAP PO SCH ×3 (05:37→20:56)
[2018-05-09] MEDS: Insulin Regular 300 UNITS/3 ML VIAL SC PRN ×2 (05:38→11:50)
[2018-05-09] MEDS: HYDROcodone/Acetaminophen 5/325 mg Tablet PO PRN ×3 (05:47→17:33)
[2018-05-09] MEDS: Meloxicam 7.5 MG TAB PO SCH (08:17)
[2018-05-09] MEDS: Lantus 1000 UNITS/10 ML VIAL SC SCH ×2 (09:15→20:15)
[2018-05-09] MEDS: Pregabalin 75 MG CAP PO SCH ×2 (09:16→20:12)
[2018-05-09] MEDS: Nitrofurantoin Macrocrystal 50 MG CAP PO SCH ×4 (09:17→20:14)
[2018-05-09] MEDS: DULoxetine 30 MG CAP PO SCH ×2 (09:17→20:14)
[2018-05-09] MEDS: Nebivolol HCl 10 MG TAB PO SCH (09:17)
[2018-05-09] MEDS: NEXIUM 40 MG PO SCH (09:18)
[2018-05-09] MEDS: TRULICITY PATIENT'S HOME MEDICATION SC SCH (09:19)
[2018-05-09] MEDS: Triamterene/Hydrochlorothiazide TAB PO SCH (11:49)
[2018-05-09] MEDS: Montelukast Sodium 10 mg Tablet PO SCH (20:12)
[2018-05-09] MEDS: Famotidine 20 MG TAB PO SCH (20:14)
[2018-05-09] MEDS: Oxybutynin 5 MG TAB PO SCH (20:14)
--- NOTE | 2018-05-09 23:44 | PRG ---
DATE OF SERVICE: 05/09/2018 SUBJECTIVE: Ms. Stone is a very pleasant 68-year-old, somewhat obese white female who had significant arthritis of the right knee. She had a total knee done by Dr. Whyte on April 25. She was transferred here for physical therapy and occupational therapy, also follow her diabetes which has been poorly controlled, her hypertension, and her asthma. The patient states she is doing well and not having problems. She did overstretch her knee last . She has had a quite a bit of pain with it. She states she is gradually getting better now, but she would like to talk to Dr. Whyte about it next week. OBJECTIVE: VITAL SIGNS: Reveal blood pressure this morning was 158/72, pulse 60 to 67, respirations 18 to 20, O2 sat 94% to 97% on room air, and T-max 97.7. GENERAL: This is a well-developed, well-nourished, slightly obese white female, in no apparent distress at this time. HEENT: Reveals normocephalic and nontraumatic cranium. Pupils equally round and reactive. Extraocular movements are intact. Nose and throat are slightly dry. NECK: Supple without masses, nodes, or bruits. CHEST: Clear to auscultation. No rales, rhonchi, wheezes, or cough is heard. HEART: Reveals a regular rate and rhythm without murmurs, gallops, or rubs. ABDOMEN: Soft, nontender without organomegaly. Normal bowel sounds are noted. No rebound or guarding noted. EXAM: Deferred. EXTREMITIES: Reveal anterior right knee incision that continues to slowly heal. No significant tenderness is noted. NEUROLOGIC: Patient is oriented x3. No focal deficits are noted. ASSESSMENT: 1. Recent total right knee repair done by Dr. Whyte. 2. Diabetes, out of control, which is much improved. 3. History of acute on chronic renal insufficiency. 4. History of asthma, which is stable. 5. Hypertension, which is stable. 6. Generalized weakness. PLAN: 1. Continue PT and OT. 2. Continue sliding scale and long-acting as needed. 3. Stress ulcer prophylaxis. 4. DVT prophylaxis. 5. Decubitus precautions. 6. Continue physical therapy and occupational therapy. 7. I would like her to call me back on Friday. Job ID: [id number]
[2018-05-10] MEDS: AMOXicillin 250 MG CAP PO SCH ×3 (05:48→20:15)
[2018-05-10] MEDS: Lantus 1000 UNITS/10 ML VIAL SC SCH ×2 (08:39→20:14)
[2018-05-10] MEDS: Meloxicam 7.5 MG TAB PO SCH (08:40)
[2018-05-10] MEDS: DULoxetine 30 MG CAP PO SCH ×2 (08:40→20:17)
[2018-05-10] MEDS: Pregabalin 75 MG CAP PO SCH ×2 (08:41→20:18)
[2018-05-10] MEDS: Nebivolol HCl 10 MG TAB PO SCH (08:42)
[2018-05-10] MEDS: HYDROcodone/Acetaminophen 5/325 mg Tablet PO PRN ×2 (08:43→20:15)
[2018-05-10] MEDS: Triamterene/Hydrochlorothiazide TAB PO SCH (08:43)
[2018-05-10] MEDS: NEXIUM 40 MG PO SCH (08:44)
--- NOTE | 2018-05-10 09:12 | PRG ---
DATE OF SERVICE: 05/10/2018 SUBJECTIVE: Ms. Stone is a very pleasant 68-year-old white female. She had a significant arthritis and had a total knee done by Dr. Whyte on April 25. Postoperatively, she was very weak and was transferred here for physical therapy and occupational therapy. Unfortunately, diabetes has been out of control, and she is also here to get that managed along with her hypertension and her asthma. The patient states she is doing well and slept well last night. She did overstretch her knee last with quite a bit of pain, which took a little while to get it work through. It is slowly getting better. OBJECTIVE: VITAL SIGNS: This morning reveal blood pressure 143/63, pulse 62 to 67, respirations 20, O2 saturation 94% to 97% on room air, T-max 97.0. GENERAL: This is a well-developed, well-nourished, slightly obese, white female, in no apparent distress at this time. HEENT: Reveals normocephalic and nontraumatic cranium. Pupils are equally round and reactive. Extraocular movements are intact. Nose and throat are slightly dry, but clear. NECK: Supple without masses, nodes, or bruits. CHEST: Clear to auscultation. No rales, rhonchi, or wheezes are heard. No cough is noted. HEART: Reveals a regular rate and rhythm without murmurs, gallops, or rubs. ABDOMEN: Soft and nontender without organomegaly. Normal bowel sounds are noted in all 4 quadrants. No rebound or guarding is noted. : Deferred. EXTREMITIES: Reveal no clubbing, cyanosis, or edema. The right anterior knee incision is slowly healing. No significant tenderness is noted. NEUROLOGIC: The patient is oriented x3. ASSESSMENT: 1. Diabetes, out of control, which still fluctuates quite a bit. 2. History of eymns-it-qagkxth renal insufficiency. 3. History of asthma, which is stable. 4. Hypertension, which is stable. 5. Generalized weakness. 6. Recent total knee repair done by Dr. Whyte. PLAN: 1. Continue sliding scale as needed. 2. Continue to monitor the patient's Accu-Cheks with a.c. and at bedtime. 3. Stress ulcer prophylaxis. 4. DVT prophylaxis. 5. Decubitus precautions. 6. Continue physical therapy and occupational therapy. 7. Dr. Britt will be back on-call tomorrow. Job ID: [id number]
[2018-05-10] MEDS: Insulin Regular 300 UNITS/3 ML VIAL SC PRN (11:40)
[2018-05-10] MEDS: Nitrofurantoin Macrocrystal 50 MG CAP PO SCH ×4 (13:14→20:16)
[2018-05-10] MEDS: Montelukast Sodium 10 mg Tablet PO SCH (20:16)
[2018-05-10] MEDS: Famotidine 20 MG TAB PO SCH (20:16)
[2018-05-10] MEDS: Oxybutynin 5 MG TAB PO SCH (20:17)
[2018-05-11] MEDS: AMOXicillin 250 MG CAP PO SCH ×3 (05:37→20:33)
[2018-05-11] MEDS: DULoxetine 30 MG CAP PO SCH ×2 (08:19→20:33)
[2018-05-11] MEDS: Meloxicam 7.5 MG TAB PO SCH (08:19)
[2018-05-11] MEDS: Lantus 1000 UNITS/10 ML VIAL SC SCH ×2 (08:20→20:31)
[2018-05-11] MEDS: Nitrofurantoin Macrocrystal 50 MG CAP PO SCH ×4 (08:20→20:33)
[2018-05-11] MEDS: Nebivolol HCl 10 MG TAB PO SCH (08:20)
[2018-05-11] MEDS: NEXIUM 40 MG PO SCH (08:21)
[2018-05-11] MEDS: Pregabalin 75 MG CAP PO SCH ×2 (08:24→20:34)
[2018-05-11] MEDS: Triamterene/Hydrochlorothiazide TAB PO SCH (08:26)
[2018-05-11] MEDS: HYDROcodone/Acetaminophen 5/325 mg Tablet PO PRN ×2 (08:28→15:44)
[2018-05-11] MEDS: Insulin Regular 300 UNITS/3 ML VIAL SC PRN (11:50)
--- NOTE | 2018-05-11 16:04 | PRG ---
DATE OF SERVICE: 05/07/2018 SUBJECTIVE: The patient is awake and alert. No complaints. Cooperating well with therapy. States that her knee is getting much better, is having no fever or chills. OBJECTIVE: VITAL SIGNS: Show temperature 98.4, pulse 78, respirations 20, O2 sats 94% on room air, blood pressure 157/66. Accu-Chek's range from 176 to 259. EXTREMITIES: Right knee shows fading ecchymoses, no erythema, warmth, or tenderness. ABDOMEN: Soft and nontender. LUNGS: Clear. CARDIAC: Showed regular rhythm. ASSESSMENT: 1. Uncontrolled diabetes, slowly titrating dose of insulin up. 2. Right total knee healing well with recent Orthopedic followup with no problems. PLAN: Continue PT/OT. Continue slowly increase insulin. Continue pain relief per Orthopedic surgeon. Job ID: [id number]
--- NOTE | 2018-05-11 16:32 | PRG ---
DATE OF SERVICE: 05/11/2018 SUBJECTIVE: The patient feels well, cooperating with therapy, very pleased. She has been bending her knee 90 degrees, having some pain, but is improving. She is having no hypoglycemic spells and no hyperglycemic symptoms. She is eating appropriately most of the time. OBJECTIVE: VITAL SIGNS: Blood pressure is 131/58, temperature is 98, pulse 61, respirations 20, O2 saturations 95% on room air. LUNGS: Clear. CARDIAC: Showed regular rhythm. ABDOMEN: Soft and nontender. SKIN AND EXTREMITIES: No edema, clubbing, or cyanosis. NEUROLOGICAL: Intact. Right knee shows fading ecchymosis. No erythema. Basilia have been removed with no drainage. Persistent edema with decreasing tenderness. ASSESSMENT: 1. Resolving right total knee. 2. Improved diabetes, but still not at goal. 3. Escherichia coli urinary tract infection, resolving, on amoxicillin. PLAN: 1. Continue Lantus, increased to 50 units in the morning, 23 units in the evening. 2. Continue Mobic. 3. Continue amoxicillin 500 three times daily for E coli urinary tract infection. There is no evidence of orthopedic infection. Job ID: [id number]
[2018-05-11] MEDS: Famotidine 20 MG TAB PO SCH (20:33)
[2018-05-11] MEDS: Montelukast Sodium 10 mg Tablet PO SCH (20:33)
[2018-05-11] MEDS: Oxybutynin 5 MG TAB PO SCH (20:33)
[2018-05-12] MEDS: AMOXicillin 250 MG CAP PO SCH ×3 (05:38→20:31)
[2018-05-12] MEDS: Nitrofurantoin Macrocrystal 50 MG CAP PO SCH ×4 (08:28→20:29)
[2018-05-12] MEDS: Meloxicam 7.5 MG TAB PO SCH (08:29)
[2018-05-12] MEDS: DULoxetine 30 MG CAP PO SCH ×2 (08:30→20:28)
[2018-05-12] MEDS: Nebivolol HCl 10 MG TAB PO SCH (08:32)
[2018-05-12] MEDS: Pregabalin 75 MG CAP PO SCH ×2 (08:34→20:30)
[2018-05-12] MEDS: Triamterene/Hydrochlorothiazide TAB PO SCH (08:52)
[2018-05-12] MEDS ORDERED: Lantus 1000 UNITS/10 ML VIAL SC SCH (09:00)
[2018-05-12] MEDS: NEXIUM 40 MG PO SCH (09:09)
[2018-05-12] MEDS: HYDROcodone/Acetaminophen 5/325 mg Tablet PO PRN ×2 (10:50→16:47)
[2018-05-12] MEDS: Insulin Regular 300 UNITS/3 ML VIAL SC PRN (12:00)
[2018-05-12] MEDS: Famotidine 20 MG TAB PO SCH (20:29)
[2018-05-12] MEDS: Montelukast Sodium 10 mg Tablet PO SCH (20:29)
[2018-05-12] MEDS: Lantus 1000 UNITS/10 ML VIAL SC SCH (20:29)
[2018-05-12] MEDS: Oxybutynin 5 MG TAB PO SCH (20:30)
[2018-05-13] MEDS: AMOXicillin 250 MG CAP PO SCH ×3 (05:48→20:24)
--- NOTE | 2018-05-13 06:34 | PRG ---
DATE OF SERVICE: 05/12/2018 SUBJECTIVE: The patient feels well, cooperating with therapy. States she is having some pain, but is getting stronger and is walking out in the [place]. She is hoping to have one more week of therapy approved by her insurance company and should be ready for discharge home at that time. She is having no fever or chills. She is having resolving urinary tract infection. Her Accu-Cheks have improved to mainly Accu-Cheks between 99 and 178 over the last 12 hours, but still elevated in the afternoon on 52 units of Lantus in the morning, 22 units at night. Right knee shows resolving ecchymoses, swelling. No evidence of any erythema or warmth. ASSESSMENT: 1. Resolving right total knee. No evidence of infection, healing well, decreasing pain, increasing mobility. 2. Resolving urinary tract infection with antibiotics to finish in the next several days. 3. Insulin-dependent diabetes mellitus with inadequate control, but improving daily and will titrate further up to 56 units of Lantus in the morning, 23 units at night and monitor. 4. Hypertension, controlled to goal. Job ID: [id number]
[2018-05-13] MEDS: Meloxicam 7.5 MG TAB PO SCH (08:22)
[2018-05-13] MEDS: Lantus 1000 UNITS/10 ML VIAL SC SCH ×2 (09:21→20:21)
[2018-05-13] MEDS: DULoxetine 30 MG CAP PO SCH ×2 (09:23→20:21)
[2018-05-13] MEDS: Nitrofurantoin Macrocrystal 50 MG CAP PO SCH ×4 (09:23→20:22)
[2018-05-13] MEDS: Triamterene/Hydrochlorothiazide TAB PO SCH (09:24)
[2018-05-13] MEDS: Pregabalin 75 MG CAP PO SCH ×2 (09:25→20:23)
[2018-05-13] MEDS: NEXIUM 40 MG PO SCH (09:26)
[2018-05-13] MEDS: Nebivolol HCl 10 MG TAB PO SCH (09:26)
[2018-05-13] MEDS: HYDROcodone/Acetaminophen 5/325 mg Tablet PO PRN ×2 (09:34→14:00)
[2018-05-13] MEDS: Famotidine 20 MG TAB PO SCH (20:21)
[2018-05-13] MEDS: Montelukast Sodium 10 mg Tablet PO SCH (20:22)
[2018-05-13] MEDS: Oxybutynin 5 MG TAB PO SCH (20:22)
[2018-05-14] MEDS: AMOXicillin 250 MG CAP PO SCH ×3 (05:11→21:46)
--- NOTE | 2018-05-14 06:33 | PRG ---
DATE OF SERVICE: 05/13/2018 SUBJECTIVE: The patient feels well, cooperating well with therapy. She is having persistent but decreasing pain, and she is ambulating greater than 300 feet with no difficulty. She has not been outside or up and down steps. She feels, however, she is progressing towards discharge in the end of this week or next week if approved. OBJECTIVE: VITAL SIGNS: Blood pressure is 144/62, temperature is 98, pulse 60, respirations 20, and O2 sats 95% on room air. Accu-Cheks ranged from 99 to 179. LUNGS: Are clear. CARDIAC: Examination, regular rhythm. ABDOMEN: Soft and nontender. EXTREMITIES: Right knee shows fading ecchymosis. No erythema or warmth. ASSESSMENT: 1. Resolving right total knee. 2. Stable type 2 diabetes. 3. Resolving urinary tract infection. 4. Hypertension, controlled to goal. PLAN: 1. Continue PT/OT. 2. Continue to monitor diabetes, on present medications, appears to be adequate control. 3. Continue to monitor vital signs including blood pressure as it first appeared to be somewhat labile with increased pain. 4. Finish amoxicillin 1 week's course tonight. Job ID: [id number]
[2018-05-14] MEDS: Lantus 1000 UNITS/10 ML VIAL SC SCH ×2 (09:00→20:39)
[2018-05-14] MEDS: Meloxicam 7.5 MG TAB PO SCH (09:00)
[2018-05-14] MEDS: DULoxetine 30 MG CAP PO SCH ×2 (09:00→20:35)
[2018-05-14] MEDS: Nitrofurantoin Macrocrystal 50 MG CAP PO SCH ×4 (09:01→20:34)
[2018-05-14] MEDS: Triamterene/Hydrochlorothiazide TAB PO SCH (09:02)
[2018-05-14] MEDS: NEXIUM 40 MG PO SCH (09:02)
[2018-05-14] MEDS: Nebivolol HCl 10 MG TAB PO SCH (09:02)
[2018-05-14] MEDS: Pregabalin 75 MG CAP PO SCH ×2 (09:03→20:32)
[2018-05-14] MEDS: HYDROcodone/Acetaminophen 5/325 mg Tablet PO PRN ×2 (09:03→20:33)
[2018-05-14] MEDS: Famotidine 20 MG TAB PO SCH (20:34)
[2018-05-14] MEDS: Montelukast Sodium 10 mg Tablet PO SCH (20:35)
[2018-05-14] MEDS: Oxybutynin 5 MG TAB PO SCH (20:38)
[2018-05-15] MEDS: Meloxicam 7.5 MG TAB PO SCH (08:23)
[2018-05-15] MEDS: HYDROcodone/Acetaminophen 5/325 mg Tablet PO PRN ×2 (08:24→16:05)
[2018-05-15] MEDS: Pregabalin 75 MG CAP PO SCH ×2 (08:26→20:30)
[2018-05-15] MEDS: Nebivolol HCl 10 MG TAB PO SCH (08:26)
[2018-05-15] MEDS: Nitrofurantoin Macrocrystal 50 MG CAP PO SCH ×4 (08:31→20:29)
[2018-05-15] MEDS: DULoxetine 30 MG CAP PO SCH ×2 (08:31→20:30)
[2018-05-15] MEDS: Lantus 1000 UNITS/10 ML VIAL SC SCH ×2 (08:32→20:34)
[2018-05-15] MEDS: NEXIUM 40 MG PO SCH (08:33)
[2018-05-15] MEDS: Triamterene/Hydrochlorothiazide TAB PO SCH (08:34)
[2018-05-15] MEDS: Montelukast Sodium 10 mg Tablet PO SCH (20:29)
[2018-05-15] MEDS: Famotidine 20 MG TAB PO SCH (20:30)
[2018-05-15] MEDS: Oxybutynin 5 MG TAB PO SCH (20:30)
[2018-05-16] MEDS: HYDROcodone/Acetaminophen 5/325 mg Tablet PO PRN ×4 (03:13→20:49)
[2018-05-16] MEDS: Meloxicam 7.5 MG TAB PO SCH (08:09)
[2018-05-16] MEDS: DULoxetine 30 MG CAP PO SCH ×2 (08:10→20:48)
[2018-05-16] MEDS: Lantus 1000 UNITS/10 ML VIAL SC SCH ×2 (08:10→20:53)
[2018-05-16] MEDS: Nebivolol HCl 10 MG TAB PO SCH (08:11)
[2018-05-16] MEDS: Nitrofurantoin Macrocrystal 50 MG CAP PO SCH ×4 (08:12→20:48)
[2018-05-16] MEDS: TRULICITY PATIENT'S HOME MEDICATION SC SCH (08:12)
[2018-05-16] MEDS: NEXIUM 40 MG PO SCH (08:12)
[2018-05-16] MEDS: Pregabalin 75 MG CAP PO SCH ×2 (08:14→20:49)
[2018-05-16] MEDS: Triamterene/Hydrochlorothiazide TAB PO SCH (08:14)
[2018-05-16] MEDS ORDERED: Dextrose 50% Abboject 50 ML SYRINGE SLOW IVP PRN (13:45)
[2018-05-16] MEDS ORDERED: Dextrose 5% in Water 1,000 ML IV PRN (13:45)
[2018-05-16] MEDS ORDERED: HumaLOG 300 UNITS/3 ML VIAL SC PRN ×2 (13:45)
--- NOTE | 2018-05-16 13:58 | PRG ---
DATE OF SERVICE: 05/16/2018 SUBJECTIVE: Ms. Stone is doing well, resting comfortably. She states that she is getting more movement in her right knee. Pain is controlled. No family at bedside. Denies any chest pain or shortness of breath. Denies any lightheadedness or dizziness. Denies any redness, fever or chills. OBJECTIVE: VITAL SIGNS: She is afebrile, heart rate 70, respirations 18, oxygen saturation 94% on room air, blood pressure 140/63. CARDIOVASCULAR SYSTEM: S1, S2 plus. RESPIRATORY SYSTEM: Normal vesicular breath sounds. ABDOMEN: Soft, obese, nontender. Bowel sounds heard in all quadrants. EXTREMITIES: Without cyanosis or clubbing. Right knee incision is healthy. CENTRAL NERVOUS SYSTEM: Alert, awake and oriented x3. Cranial nerves 2 through 12 intact. Motor system examination shows generalized weakness. LABORATORY VALUES: Blood sugars are 184, 245, 174 and 266. IMPRESSION: 1. Recent right total knee replacement. 2. Diabetes mellitus type 2. 3. Hypertension. 4. Asthma. 5. Morbid obesity. PLAN: 1. Continue 1800-calorie heart healthy ADA diet. 2. Accu-Cheks with sliding scale coverage. 3. Monitor blood pressure. 4. DVT and stress ulcer prophylaxis. 5. Decubitus precautions. 6. Incision care. 7. Routine laboratory values. Job ID: [id number]
[2018-05-16] MEDS: Montelukast Sodium 10 mg Tablet PO SCH (20:48)
[2018-05-16] MEDS: Oxybutynin 5 MG TAB PO SCH (20:48)
[2018-05-16] MEDS: Famotidine 20 MG TAB PO SCH (20:48)
[2018-05-17] MEDS: HYDROcodone/Acetaminophen 5/325 mg Tablet PO PRN ×3 (04:04→18:04)
[2018-05-17] MEDS: Meloxicam 7.5 MG TAB PO SCH (08:12)
[2018-05-17] MEDS: DULoxetine 30 MG CAP PO SCH ×2 (08:13→21:11)
[2018-05-17] MEDS: Lantus 1000 UNITS/10 ML VIAL SC SCH ×2 (08:13→21:14)
[2018-05-17] MEDS: NEXIUM 40 MG PO SCH (08:14)
[2018-05-17] MEDS: Nitrofurantoin Macrocrystal 50 MG CAP PO SCH ×4 (08:14→21:11)
[2018-05-17] MEDS: Nebivolol HCl 10 MG TAB PO SCH (08:14)
[2018-05-17] MEDS: Pregabalin 75 MG CAP PO SCH ×2 (08:16→21:12)
[2018-05-17] MEDS: Triamterene/Hydrochlorothiazide TAB PO SCH (08:17)
[2018-05-17 18:36] VITALS: TEMP 98.4
[2018-05-17] MEDS: Montelukast Sodium 10 mg Tablet PO SCH (21:10)
[2018-05-17] MEDS: Oxybutynin 5 MG TAB PO SCH (21:11)
[2018-05-17] MEDS: Famotidine 20 MG TAB PO SCH (21:11)
[2018-05-18 05:51] VITALS: BP 152/62
[2018-05-18] MEDS: Meloxicam 7.5 MG TAB PO SCH (08:12)
[2018-05-18] MEDS: Lantus 1000 UNITS/10 ML VIAL SC SCH (08:47)
[2018-05-18] MEDS: Pregabalin 75 MG CAP PO SCH (08:49)
[2018-05-18] MEDS: DULoxetine 30 MG CAP PO SCH (08:49)
[2018-05-18] MEDS: Nebivolol HCl 10 MG TAB PO SCH (08:51)
[2018-05-18] MEDS: NEXIUM 40 MG PO SCH (08:51)
[2018-05-18] MEDS: Triamterene/Hydrochlorothiazide TAB PO SCH (08:52)
--- NOTE | 2018-05-18 11:07 | PRG ---
DATE OF SERVICE: 05/15/2018 SUBJECTIVE: The patient feels well. Feels she is improving with therapy and is having less pain with control with analgesics. She has been eating well on her diet and feels that her diabetes is much better controlled. OBJECTIVE: VITAL SIGNS: Show her temperature is 97.7, pulse 63, respirations 22, O2 sats 95% on room air, and blood pressure 131/58. EXTREMITIES: Right knee shows minimal swelling, no erythema or warmth. Decrease in tenderness. Increase in range of motion. LUNGS: Clear. CARDIAC: Regular rhythm. ABDOMEN: Soft and nontender. LABORATORY DATA: Show Accu-Cheks ranging from 184 to 245, on 56 units of Lantus in the morning, 23 units at night. ASSESSMENT: 1. Resolving right total knee replacement with decrease in pain, increasing mobility. 2. Slowly improving type 2 diabetes, increase in control, requiring only occasional sliding scale, on 56 units of Lantus in the morning and 23 units at night, and we will continue to monitor. 3. Anxiety and depression, greatly improved. Job ID: [id number]
--- NOTE | 2018-05-19 03:22 | DIS ---
DATE OF ADMISSION: 04/27/2018 DATE OF DISCHARGE: 05/18/2018 FINAL DIAGNOSES: 1. Degenerative joint disease, right knee, status post right total knee replacement with greatly decreasing pain, increasing mobility, who is able to maintain ADLs and being discharged home to follow up with home health care. 2. Type 2 diabetes with initial poor control but improving greatly with increased compliance to diet on Lantus 56 units in the morning, 23 units at night with only a rare sliding scale and an occasional daytime hyperglycemia. 3. Depression, anxiety, greatly improved. 4. Hypertension, controlled to goal. 5. Peripheral neuropathy, stable. 6. Allergic bronchitis, stable on Singulair. 7. Hypertension, controlled, at goal. HOSPITAL COURSE: Patient is a 68-year-old white female with history of hypertension, type 2 diabetes, obesity, and arthritis of the right knee, who has undergone a right total knee replacement and is unable to maintain ADLs at the [facility] and [place] [facility] [place]. She was admitted on April 28 with a great deal of pain with minimal swelling or stiffness. She slowly but surely improved with decreasing pain, increasing range of motion. She did develop a leukocytosis felt to initially be due to infection of the knee, but it was found to be due to urinary tract infection. Orthopedic surgeon followed and helped for another examination, felt her knee was doing well. She slowly but surely improved with pain medicine only prior to physical therapy. Her diabetes was initially very labile and poorly controlled at [facility] but was slowly improved on better dietary compliance here and was being maintained on 56 units of Lantus in the morning and 23 units at night with only rare need for sliding scale. She will be discharged home on this regimen, but with instructions to obtain Accu-Cheks prior to every meal and to report back in one week for maintenance care examination to determine whether she needs NovoLog prior to meals. She has her home medications that will be continued on these which included Trulicity 0.75 mg weekly; Lantus as mentioned above, 56 units in the morning, 23 units in the evening; meloxicam 15 mg daily; MiraLAX 17 g daily; Dyazide 1 tab daily; trazodone 200 mg nightly, ranitidine 150 mg nightly, Lyrica 150 mg twice daily. Ditropan 10 mg nightly, Bystolic 20 mg daily, Singulair 10 mg daily, Myrbetriq 12.5 mg daily, hydrocodone 5/325 before every therapy, and Cymbalta 60 mg twice daily. Job ID: [id number]
== END 2018-05-18 11:40 | disposition home health service (06) | DRG 560 ==
LOC: NAV ACUTE 19:21
PROVIDERS: ADMIT Internal Medicine; ATTEND Internal Medicine
DX: Z47.1 Aftercare following joint replacement surgery (principal); N39.0 Urinary tract infection, site not specified; N17.9 Acute kidney failure, unspecified; B37.0 Candidal stomatitis; Z68.42 Body mass index [BMI] 45.0-49.9, adult; E66.01 Morbid (severe) obesity due to excess calories; I10 Essential (primary) hypertension; J45.909 Unspecified asthma, uncomplicated; E11.65 Type 2 diabetes mellitus with hyperglycemia; F32.9 Major depressive disorder, single episode, unspecified; F41.9 Anxiety disorder, unspecified; E11.42 Type 2 diabetes mellitus with diabetic polyneuropathy; B96.20 Unspecified Escherichia coli [E. coli] as the cause of diseases classified elsewhere; B96.4 Proteus (mirabilis) (morganii) as the cause of diseases classified elsewhere; K59.00 Constipation, unspecified; Z87.19 Personal history of other diseases of the digestive system; Z88.2 Allergy status to sulfonamides; Z88.8 Allergy status to other drugs, medicaments and biological substances; Z91.041 Radiographic dye allergy status; Z91.11 Patient's noncompliance with dietary regimen
CPT/HCPCS: 36415; 36416; 71045; 80048; 80053; 81001; 85025; 87040; 87070; 87077; 87081; 87086; 87149; 87186; 87205; J0696; J1815; J3370; J7050

== ENCOUNTER 2020-10-22 08:18 | Inpatient (IN) | payer MEDICARE, MEDICAID ==
[2020-10-22] MEDS ORDERED: HYDROcodone/Acetaminophen 10/325 mg Tablet PO PRN ×4 (12:26→12:35)
[2020-10-22] MEDS ORDERED: traMADol HCl 50 MG TAB PO PRN ×2 (12:26→12:33)
[2020-10-22] MEDS ORDERED: Dextrose 50% Abboject 50 ML SYRINGE SLOW IVP PRN (12:34)
[2020-10-22] MEDS ORDERED: HumaLOG 300 UNITS/3 ML VIAL SC PRN ×2 (12:34)
[2020-10-22] MEDS: Cepastat Lozenges 1 LOZ PO PRN (16:01)
[2020-10-22] MEDS: Gabapentin 300 MG CAP PO SCH (20:25)
[2020-10-22] MEDS: Montelukast Sodium 10 mg Tablet PO SCH (20:27)
[2020-10-22] MEDS: HYDROcodone/Acetaminophen 10/325 mg Tablet PO PRN (20:27)
[2020-10-23] MEDS: Cepastat Lozenges 1 LOZ PO PRN (02:11)
[2020-10-23 05:30] LABS: #Basophils 0.1 thou/uL (0.0-0.2); #Eosinphils 0.3 thou/uL (0.0-0.7); #Lymphocytes 2.8 thou/uL (1.20-3.40); #Monocytes 0.9 thou/uL (0.11-0.59); #Neutrophils 4.2 thou/uL (1.40-6.50); %Basophils 1.1 % (0.0-1.0); %Monocytes 10.8 % (0.0-10.0); Hemoglobin 12.3 g/dL (12.0-16.0); Mean Corpuscular HGB CONC 31.3 g/dL (32.0-36.0); Mean Corpuscular Hemoglobin 29.5 pg (27.0-31.0); Mean Corpuscular Volume 94.3 fL (78.0-98.0); Mean Platelet Volume 6.1 fL (7.4-10.4); Platelet Count 297 thou/uL (130-400); RBC Distribution Width 12.1 % (11.5-14.5); Red Blood Cell (RBC) Count 4.16 mill/uL (4.20-5.40); White Blood Cell (WBC) Count 8.3 thou/uL (4.8-10.8)
[2020-10-23 05:43] LABS: Anion Gap 15 mmol/L (10-20); BUN (Urea Nitrogen) 10 mg/dL (9.8-20.1); Calc. Creatinine Clearance 102 mL/min (70-130); Calcium 9.2 mg/dL (7.8-10.44); Carbon Dioxide 27 mmol/L (23-31); Chloride 102 mmol/L (98-107); Glucose 117 mg/dL (80-115); Potassium 4.8 mmol/L (3.5-5.1); Sodium 139 mmol/L (136-145)
[2020-10-23] MEDS ORDERED: Nebivolol HCl 10 MG TAB PO SCH ×2 (06:15→09:00)
[2020-10-23] MEDS: DULoxetine 30 MG CAP PO SCH (08:38)
[2020-10-23] MEDS: Lantus 1000 UNITS/10 ML VIAL SC SCH (08:38)
[2020-10-23] MEDS: HYDROcodone/Acetaminophen 10/325 mg Tablet PO PRN (08:40)
[2020-10-23] MEDS ORDERED: Aspirin 325 MG TAB PO SCH (09:00)
[2020-10-23] MEDS: Gabapentin 300 MG CAP PO SCH (20:14)
[2020-10-23] MEDS: Montelukast Sodium 10 mg Tablet PO SCH (20:14)
[2020-10-23] MEDS: SUVOREXANT 10 MG PO SCH (20:22)
[2020-10-24] MEDS: HYDROcodone/Acetaminophen 10/325 mg Tablet PO PRN ×3 (05:49→20:51)
[2020-10-24] MEDS: Lantus 1000 UNITS/10 ML VIAL SC SCH (08:53)
[2020-10-24] MEDS: DULoxetine 30 MG CAP PO SCH (08:53)
[2020-10-24] MEDS: Nebivolol HCl 10 MG TAB PO SCH (08:53)
[2020-10-24] MEDS ORDERED: Lisinopril 20 MG TAB PO SCH (10:00)
[2020-10-24] MEDS: Cepastat Lozenges 1 LOZ PO PRN (15:19)
[2020-10-24] MEDS: Gabapentin 300 MG CAP PO SCH (20:52)
[2020-10-24] MEDS: Montelukast Sodium 10 mg Tablet PO SCH (20:52)
[2020-10-24] MEDS: SUVOREXANT 10 MG PO SCH (20:55)
[2020-10-25] MEDS: HYDROcodone/Acetaminophen 10/325 mg Tablet PO PRN ×3 (08:47→20:49)
[2020-10-25] MEDS: Nebivolol HCl 10 MG TAB PO SCH (08:53)
[2020-10-25] MEDS: DULoxetine 30 MG CAP PO SCH (08:53)
[2020-10-25] MEDS: Lantus 1000 UNITS/10 ML VIAL SC SCH (08:53)
[2020-10-25] MEDS: Lisinopril 20 MG TAB PO SCH (08:54)
[2020-10-25] MEDS: Montelukast Sodium 10 mg Tablet PO SCH (20:50)
[2020-10-25] MEDS: Gabapentin 300 MG CAP PO SCH (20:50)
[2020-10-25] MEDS: SUVOREXANT 10 MG PO SCH (20:51)
[2020-10-26] MEDS: HYDROcodone/Acetaminophen 10/325 mg Tablet PO PRN ×3 (08:25→21:57)
[2020-10-26] MEDS: Nebivolol HCl 10 MG TAB PO SCH (08:26)
[2020-10-26] MEDS: Lantus 1000 UNITS/10 ML VIAL SC SCH (08:26)
[2020-10-26] MEDS: DULoxetine 30 MG CAP PO SCH (08:26)
[2020-10-26] MEDS: Lisinopril 20 MG TAB PO SCH (09:59)
[2020-10-26] MEDS: SUVOREXANT 10 MG PO SCH (20:44)
[2020-10-26] MEDS: Gabapentin 300 MG CAP PO SCH (20:47)
[2020-10-26] MEDS: Montelukast Sodium 10 mg Tablet PO SCH (20:48)
[2020-10-27] MEDS: HYDROcodone/Acetaminophen 10/325 mg Tablet PO PRN ×3 (05:52→20:44)
[2020-10-27 06:05] LABS: Bilirubin Negative (Negative); Blood, Urine Moderate (Negative); Clarity Turbid (Clear); Glucose, Urine (Dipstick) Negative (Negative); Ketone, Urine Negative (Negative); Leukocyte Moderate (Negative); Nitrite Negative (Negative); Protein, Urine (Dipstick) 100 mg/dL (Neg-Trace)
[2020-10-27 06:09] LABS: Specific Gravity, Urine 1.021 (1.002-1.036)
[2020-10-27 06:16] LABS: Bacteria/HPF 2+ HPF (None Seen); RBC/HPF 0-3 HPF (0-3); Squamous Epithelial 0-3 HPF (0-3); WBC/HPF 21-50 HPF (0-3)
[2020-10-27 06:17] LABS: Urine Culture Reflex Yes Yes
[2020-10-27] MEDS: Nebivolol HCl 10 MG TAB PO SCH (09:25)
[2020-10-27] MEDS: DULoxetine 30 MG CAP PO SCH (09:25)
[2020-10-27] MEDS: Lisinopril 20 MG TAB PO SCH (09:26)
[2020-10-27] MEDS: Lantus 1000 UNITS/10 ML VIAL SC SCH (09:27)
[2020-10-27] MEDS ORDERED: Docusate 100 MG CAP PO SCH (15:00)
[2020-10-27] MEDS ORDERED: Polyethylene Glycol 3350 17 GM Packet PO SCH (15:00)
[2020-10-27] MEDS: Gabapentin 300 MG CAP PO SCH (20:43)
[2020-10-27] MEDS: Montelukast Sodium 10 mg Tablet PO SCH (20:44)
[2020-10-27] MEDS: SUVOREXANT 10 MG PO SCH (20:45)
[2020-10-28] MEDS: HYDROcodone/Acetaminophen 10/325 mg Tablet PO PRN ×3 (03:58→20:48)
[2020-10-28] MEDS ORDERED: Cipro 250 MG TAB PO SCH (07:00)
[2020-10-28] MEDS ORDERED: TRULICITY SC SCH (07:15)
[2020-10-28] MEDS: Docusate 100 MG CAP PO SCH (09:02)
[2020-10-28] MEDS: Nebivolol HCl 10 MG TAB PO SCH (09:03)
[2020-10-28] MEDS: Lantus 1000 UNITS/10 ML VIAL SC SCH (09:03)
[2020-10-28] MEDS: Lisinopril 20 MG TAB PO SCH (09:03)
[2020-10-28] MEDS: DULoxetine 30 MG CAP PO SCH (09:03)
[2020-10-28] MEDS: Polyethylene Glycol 3350 17 GM Packet PO SCH (09:04)
[2020-10-28] MEDS: Gabapentin 300 MG CAP PO SCH (20:49)
[2020-10-28] MEDS: SUVOREXANT 10 MG PO SCH (20:50)
[2020-10-28] MEDS: Montelukast Sodium 10 mg Tablet PO SCH (20:50)
[2020-10-28] MEDS: Amlodipine 5 MG TAB PO SCH (20:50)
[2020-10-28] MEDS: Cipro 250 MG TAB PO SCH (20:51)
[2020-10-29] MEDS: HYDROcodone/Acetaminophen 10/325 mg Tablet PO PRN ×3 (05:27→20:59)
[2020-10-29] MEDS: Cipro 250 MG TAB PO SCH (05:28)
[2020-10-29 05:31] VITALS: BMI 35.4
[2020-10-29] MEDS: Docusate 100 MG CAP PO SCH (08:45)
[2020-10-29] MEDS: DULoxetine 30 MG CAP PO SCH (08:45)
[2020-10-29] MEDS: Lantus 1000 UNITS/10 ML VIAL SC SCH (08:46)
[2020-10-29] MEDS: Lisinopril 20 MG TAB PO SCH (08:46)
[2020-10-29] MEDS: Polyethylene Glycol 3350 17 GM Packet PO SCH (08:47)
[2020-10-29] MEDS: Nebivolol HCl 10 MG TAB PO SCH (08:47)
[2020-10-29] MEDS: Gabapentin 300 MG CAP PO SCH (20:53)
[2020-10-29] MEDS: Amlodipine 5 MG TAB PO SCH (20:53)
[2020-10-29] MEDS: Montelukast Sodium 10 mg Tablet PO SCH (20:53)
[2020-10-29] MEDS: SUVOREXANT 10 MG PO SCH (21:00)
[2020-10-29] MEDS ORDERED: AMOXicillin 250 MG CAP ONE (22:14)
[2020-10-29] MEDS: AMOXicillin 500 MG CAP PO SCH (22:20)
[2020-10-30] MEDS: HYDROcodone/Acetaminophen 10/325 mg Tablet PO PRN ×4 (01:47→20:16)
[2020-10-30] MEDS ORDERED: AMOXicillin 250 MG CAP ONE ×3 (06:31→14:35)
[2020-10-30] MEDS: AMOXicillin 500 MG CAP PO SCH ×2 (06:38→15:05)
[2020-10-30] MEDS: Polyethylene Glycol 3350 17 GM Packet PO SCH (08:14)
[2020-10-30] MEDS: Nebivolol HCl 10 MG TAB PO SCH (08:15)
[2020-10-30] MEDS: DULoxetine 30 MG CAP PO SCH (08:15)
[2020-10-30] MEDS: Lisinopril 20 MG TAB PO SCH (08:16)
[2020-10-30] MEDS: Docusate 100 MG CAP PO SCH (08:16)
[2020-10-30] MEDS: Lantus 1000 UNITS/10 ML VIAL SC SCH (08:18)
[2020-10-30] MEDS: Ondansetron ODT 4 MG TAB PO PRN (12:21)
[2020-10-30] MEDS ORDERED: Bisacodyl 10 MG SUPP PR PRN (13:39)
[2020-10-30] MEDS: AMOXicillin 250 MG CAP PO SCH ×2 (14:58→21:15)
[2020-10-30] MEDS: Nitrofurantoin Monohyd/M-Cryst 100 MG CAP PO SCH (20:15)
[2020-10-30] MEDS: Amlodipine 5 MG TAB PO SCH (20:15)
[2020-10-30] MEDS: Gabapentin 300 MG CAP PO SCH (20:16)
[2020-10-30] MEDS: Montelukast Sodium 10 mg Tablet PO SCH (20:17)
[2020-10-30] MEDS: SUVOREXANT 10 MG PO SCH (20:18)
[2020-10-31] MEDS: HYDROcodone/Acetaminophen 10/325 mg Tablet PO PRN ×3 (04:01→20:54)
[2020-10-31] MEDS: AMOXicillin 250 MG CAP PO SCH ×3 (05:11→20:52)
[2020-10-31] MEDS: DULoxetine 30 MG CAP PO SCH (10:14)
[2020-10-31] MEDS: Docusate 100 MG CAP PO SCH (10:14)
[2020-10-31] MEDS: Lantus 1000 UNITS/10 ML VIAL SC SCH (10:15)
[2020-10-31] MEDS: Nebivolol HCl 10 MG TAB PO SCH (10:17)
[2020-10-31] MEDS: Nitrofurantoin Monohyd/M-Cryst 100 MG CAP PO SCH ×2 (10:20→20:53)
[2020-10-31] MEDS: Lisinopril 20 MG TAB PO SCH (10:20)
[2020-10-31] MEDS: Polyethylene Glycol 3350 17 GM Packet PO SCH (10:21)
[2020-10-31] MEDS: Amlodipine 5 MG TAB PO SCH (20:53)
[2020-10-31] MEDS: Gabapentin 300 MG CAP PO SCH (20:53)
[2020-10-31] MEDS: Montelukast Sodium 10 mg Tablet PO SCH (20:53)
[2020-10-31] MEDS: SUVOREXANT 10 MG PO SCH (21:02)
[2020-11-01] MEDS: HYDROcodone/Acetaminophen 10/325 mg Tablet PO PRN ×4 (00:52→20:55)
[2020-11-01] MEDS: AMOXicillin 250 MG CAP PO SCH ×3 (07:25→20:53)
[2020-11-01] MEDS ORDERED: Lantus 1000 UNITS/10 ML VIAL SC SCH (09:00)
[2020-11-01] MEDS: Lisinopril 20 MG TAB PO SCH ×2 (09:44→10:02)
[2020-11-01] MEDS: Nitrofurantoin Monohyd/M-Cryst 100 MG CAP PO SCH ×2 (09:44→20:52)
[2020-11-01] MEDS: Docusate 100 MG CAP PO SCH (09:44)
[2020-11-01] MEDS: DULoxetine 30 MG CAP PO SCH (09:44)
[2020-11-01] MEDS: Nebivolol HCl 10 MG TAB PO SCH (09:44)
[2020-11-01] MEDS: Polyethylene Glycol 3350 17 GM Packet PO SCH (09:46)
[2020-11-01] MEDS: Gabapentin 300 MG CAP PO SCH (20:51)
[2020-11-01] MEDS: Amlodipine 5 MG TAB PO SCH (20:52)
[2020-11-01] MEDS: Montelukast Sodium 10 mg Tablet PO SCH (20:53)
[2020-11-01] MEDS: SUVOREXANT 10 MG PO SCH (20:54)
[2020-11-02] MEDS: HYDROcodone/Acetaminophen 10/325 mg Tablet PO PRN ×4 (02:03→20:14)
[2020-11-02] MEDS: AMOXicillin 250 MG CAP PO SCH ×3 (06:09→20:15)
[2020-11-02] MEDS: Polyethylene Glycol 3350 17 GM Packet PO SCH (08:22)
[2020-11-02] MEDS: DULoxetine 30 MG CAP PO SCH (08:23)
[2020-11-02] MEDS: Nitrofurantoin Monohyd/M-Cryst 100 MG CAP PO SCH ×2 (08:23→20:15)
[2020-11-02] MEDS: Docusate 100 MG CAP PO SCH (08:23)
[2020-11-02] MEDS: Lisinopril 20 MG TAB PO SCH (08:23)
[2020-11-02] MEDS: Nebivolol HCl 10 MG TAB PO SCH (08:23)
[2020-11-02] MEDS: Lantus 1000 UNITS/10 ML VIAL SC SCH (08:24)
[2020-11-02 10:00] LABS: ALT (SGPT) 17 U/L (8-55); AST (SGOT) 25 U/L (5-34); Albumin 3.7 g/dL (3.4-4.8); Alkaline Phosphatase 270 U/L (40-110); Anion Gap 14 mmol/L (10-20); BUN (Urea Nitrogen) 14 mg/dL (9.8-20.1); Bilirubin, Total 0.5 mg/dL (0.2-1.2); Calc. Creatinine Clearance 75 mL/min (70-130); Calcium 9.7 mg/dL (7.8-10.44); Carbon Dioxide 28 mmol/L (23-31); Chloride 99 mmol/L (98-107); Globulin 3.8 g/dL (2.4-3.5); Glucose 209 mg/dL (80-115); Protein, Total 7.5 g/dL (5.8-8.1); Sodium 136 mmol/L (136-145)
[2020-11-02 10:04] LABS: #Basophils 0.1 thou/uL (0.0-0.2); #Eosinphils 0.2 thou/uL (0.0-0.7); #Lymphocytes 1.9 thou/uL (1.20-3.40); #Monocytes 0.8 thou/uL (0.11-0.59); #Neutrophils 5.5 thou/uL (1.40-6.50); %Basophils 1.2 % (0.0-1.0); %Eosinophils 2.5 % (0.0-10.0); %Lymphocytes 22.7 % (21.0-51.0); %Monocytes 8.8 % (0.0-10.0); %Neutrophils 64.8 % (42.0-75.0); Hemoglobin 13.8 g/dL (12.0-16.0); Mean Corpuscular HGB CONC 30.1 g/dL (32.0-36.0); Mean Corpuscular Hemoglobin 29.1 pg (27.0-31.0); Mean Corpuscular Volume 96.7 fL (78.0-98.0); Mean Platelet Volume 5.8 fL (7.4-10.4); Platelet Count 461 thou/uL (130-400); RBC Distribution Width 13.1 % (11.5-14.5); Red Blood Cell (RBC) Count 4.73 mill/uL (4.20-5.40); White Blood Cell (WBC) Count 8.5 thou/uL (4.8-10.8)
[2020-11-02] MEDS: Ondansetron ODT 4 MG TAB PO PRN (12:29)
[2020-11-02] MEDS: Gabapentin 300 MG CAP PO SCH (20:15)
[2020-11-02] MEDS: Montelukast Sodium 10 mg Tablet PO SCH (20:15)
[2020-11-02] MEDS: Amlodipine 5 MG TAB PO SCH (20:16)
[2020-11-02] MEDS: SUVOREXANT 10 MG PO SCH (20:16)
[2020-11-03] MEDS: AMOXicillin 250 MG CAP PO SCH ×3 (05:09→20:34)
[2020-11-03] MEDS: HYDROcodone/Acetaminophen 10/325 mg Tablet PO PRN ×3 (06:09→20:33)
[2020-11-03] MEDS: DULoxetine 30 MG CAP PO SCH (09:36)
[2020-11-03] MEDS: Lantus 1000 UNITS/10 ML VIAL SC SCH (09:37)
[2020-11-03] MEDS: Docusate 100 MG CAP PO SCH (09:37)
[2020-11-03] MEDS: Nitrofurantoin Monohyd/M-Cryst 100 MG CAP PO SCH ×2 (09:37→20:34)
[2020-11-03] MEDS: Nebivolol HCl 10 MG TAB PO SCH (09:37)
[2020-11-03] MEDS: Polyethylene Glycol 3350 17 GM Packet PO SCH (09:39)
[2020-11-03] MEDS: Amlodipine 5 MG TAB PO SCH (20:34)
[2020-11-03] MEDS: Gabapentin 300 MG CAP PO SCH (20:34)
[2020-11-03] MEDS: Montelukast Sodium 10 mg Tablet PO SCH (20:34)
[2020-11-03] MEDS: SUVOREXANT 10 MG PO SCH (20:35)
[2020-11-04] MEDS: HYDROcodone/Acetaminophen 10/325 mg Tablet PO PRN ×3 (02:06→21:14)
[2020-11-04] MEDS: AMOXicillin 250 MG CAP PO SCH ×3 (05:10→21:13)
[2020-11-04] MEDS ORDERED: TRULICITY SC SCH (09:00)
[2020-11-04] MEDS: DULoxetine 30 MG CAP PO SCH (09:15)
[2020-11-04] MEDS: Nebivolol HCl 10 MG TAB PO SCH (09:15)
[2020-11-04] MEDS: Docusate 100 MG CAP PO SCH (09:15)
[2020-11-04] MEDS: Nitrofurantoin Monohyd/M-Cryst 100 MG CAP PO SCH ×2 (09:17→21:13)
[2020-11-04] MEDS: Polyethylene Glycol 3350 17 GM Packet PO SCH (09:19)
[2020-11-04] MEDS: Lantus 1000 UNITS/10 ML VIAL SC SCH (09:52)
[2020-11-04] MEDS: Gabapentin 300 MG CAP PO SCH (21:12)
[2020-11-04] MEDS: Montelukast Sodium 10 mg Tablet PO SCH (21:13)
[2020-11-04] MEDS: Amlodipine 5 MG TAB PO SCH (21:13)
[2020-11-04] MEDS: Ondansetron ODT 4 MG TAB PO PRN (21:14)
[2020-11-04] MEDS: SUVOREXANT 10 MG PO SCH (21:15)
[2020-11-05] MEDS: AMOXicillin 250 MG CAP PO SCH ×3 (05:17→20:19)
[2020-11-05] MEDS: HYDROcodone/Acetaminophen 10/325 mg Tablet PO PRN ×3 (05:17→20:24)
[2020-11-05] MEDS ORDERED: Lantus 1000 UNITS/10 ML VIAL SC SCH (09:00)
[2020-11-05] MEDS: Docusate 100 MG CAP PO SCH (09:16)
[2020-11-05] MEDS: DULoxetine 30 MG CAP PO SCH (09:17)
[2020-11-05] MEDS: Polyethylene Glycol 3350 17 GM Packet PO SCH (09:17)
[2020-11-05] MEDS: Nitrofurantoin Monohyd/M-Cryst 100 MG CAP PO SCH ×2 (09:20→20:19)
[2020-11-05] MEDS: Nebivolol HCl 10 MG TAB PO SCH (09:20)
[2020-11-05] MEDS: Lantus 1000 UNITS/10 ML VIAL SC SCH (09:21)
[2020-11-05] MEDS: Montelukast Sodium 10 mg Tablet PO SCH (20:19)
[2020-11-05] MEDS: Amlodipine 5 MG TAB PO SCH (20:19)
[2020-11-05] MEDS: Gabapentin 300 MG CAP PO SCH (20:19)
[2020-11-05] MEDS: SUVOREXANT 10 MG PO SCH (20:20)
[2020-11-06] MEDS: HYDROcodone/Acetaminophen 10/325 mg Tablet PO PRN ×2 (05:16→18:03)
[2020-11-06] MEDS: AMOXicillin 250 MG CAP PO SCH ×2 (05:17→14:50)
[2020-11-06] MEDS: DULoxetine 30 MG CAP PO SCH (08:54)
[2020-11-06] MEDS: Docusate 100 MG CAP PO SCH (08:54)
[2020-11-06] MEDS: Polyethylene Glycol 3350 17 GM Packet PO SCH (08:55)
[2020-11-06] MEDS: Nitrofurantoin Monohyd/M-Cryst 100 MG CAP PO SCH (08:55)
[2020-11-06] MEDS: Nebivolol HCl 10 MG TAB PO SCH (08:55)
[2020-11-06] MEDS ORDERED: Lantus 1000 UNITS/10 ML VIAL SC SCH (09:00)
[2020-11-06 09:03] VITALS: BP 139/65; TEMP 97.9
== END 2020-11-06 18:32 | disposition home or self-care (01) | DRG 560 ==
LOC: NAV ACUTE 11:53
PROVIDERS: ADMIT Internal Medicine; ATTEND Internal Medicine
DX: Z47.1 Aftercare following joint replacement surgery (principal); N39.0 Urinary tract infection, site not specified; I10 Essential (primary) hypertension; K21.9 Gastro-esophageal reflux disease without esophagitis; M79.7 Fibromyalgia; G89.29 Other chronic pain; F41.9 Anxiety disorder, unspecified; F32.9 Major depressive disorder, single episode, unspecified; M54.9 Dorsalgia, unspecified; Z96.651 Presence of right artificial knee joint; R53.81 Other malaise; K59.00 Constipation, unspecified; J30.9 Allergic rhinitis, unspecified; N32.81 Overactive bladder; E11.649 Type 2 diabetes mellitus with hypoglycemia without coma; B95.2 Enterococcus as the cause of diseases classified elsewhere; B96.4 Proteus (mirabilis) (morganii) as the cause of diseases classified elsewhere; Z90.89 Acquired absence of other organs; Z90.49 Acquired absence of other specified parts of digestive tract; Z98.890 Other specified postprocedural states; Z88.2 Allergy status to sulfonamides; Z91.041 Radiographic dye allergy status; Z88.8 Allergy status to other drugs, medicaments and biological substances; Z79.4 Long term (current) use of insulin; Z79.899 Other long term (current) drug therapy; Z79.82 Long term (current) use of aspirin
CPT/HCPCS: 36415; 36416; 80048; 80053; 81001; 85025; 87077; 87086; 87186; J1815; Q0162